=== PATIENT | female | born 1945 ===

== ENCOUNTER → 2018-08-16 21:23 | Outpatient (REF) | payer OTHER, SELFPAY ==
[2018-08-16 22:31] LABS: Free T3, Triiodothyronine Free 3.47 pg/mL (2.77-5.27); Free T4, Direct Thyroxine 1.41 ng/dL (0.78-2.19)
== END ==
LOC: LAB 21:23
PROVIDERS: Visit Provider Family Medicine
DX: M20.41 Other hammer toe(s) (acquired), right foot (principal); M79.89 Other specified soft tissue disorders
CPT/HCPCS: 36415; 84439; 84443; 84481